=== PATIENT | female | born 2000 | race African-American/Black ===

== ENCOUNTER 2024-06-01 16:11 | Emergency (ER) | payer SELFPAY ==
--- NOTE | 2024-06-01 16:18 | PC.NURSE ---
DR VICENTE AT BEDSIDE
--- NOTE | 2024-06-01 16:21 | ED_ITS ---
Discharge Plan Disposition Chief Complaint: OB/Uterine Contractions Prescriptions Prescriptions: New pyridoxine (vitamin B6) 25 mg tablet 25 mg PO TID Qty: 90 0RF doxylamine succinate 25 mg tablet 25 mg PO HS PRN (Reason: vomiting ) Qty: 30 0RF Activity Restrictions/Add. Instructions Additional Instructions/Restrictions: At this time it was felt you are safe to be discharged home. If new or worsening symptoms please do not hesitate to return the emergency department. Please take your medications as prescribed and follow-up with an OB to establish care within the next week if you are able. Your blood count was a little low today, please have your family doctor recheck it within the next week or so. Your potassium was a little low today which is from your vomiting and I gave some of that back to you by mouth. Please have them recheck that at your OB appointment. Clinical Impressions Clinical Impression: Intrauterine , Anemia, Acute hypokalemia, Vomiting affecting Discharge ED Provider: Mina Perez General Adult HPI General Chief complaint: OB/Uterine Contractions Stated complaint: Wants test,home test was + Time Seen by Provider: 06/01/24 16:15 History of Present Illness HPI narrative: Patient is a 23-year-old female with no pertinent past medical history presents emergency department for concerns for . Last menstrual period was 2 months ago, she has had intermittent vomiting that is nonbloody over the last 2 weeks, no abdominal pain, no vaginal discharge or bleeding, she states that her nipples are sore and due to home positive test she presents here for confirmation. Other acute complaints at this time. Related Data Previous Rx's Medication Instructions Recorded doxylamine succinate 25 mg tablet 25 mg PO HS PRN vomiting 06/01/24 #30 tabs pyridoxine (vitamin B6) 25 mg 25 mg PO TID vomiting 06/01/24 tablet #90 tabs Allergies Allergy/AdvReac Type Severity Reaction Status Date / Time No Known Allergies Allergy Verified 06/01/24 16:29 [facility] Disclaimer: The information contained in this section may have been updated after the patient was seen, as this information can be updated by other users. Social History Smoking Status: Never smoker alcohol intake: never current occupational status: other Travel in the last 8 weeks: None ROS Obtained: Yes Systems reviewed as appropriate & no additional complaints except as documented Physical Exam General General appearance: alert and in no apparent distress Head Head exam: atraumatic and normocephalic Eye Eye exam: Present PERRL ENT ENT exam: Present mucous membranes moist Neck Neck exam: Present normal inspection Chest Chest inspection: Present normal inspection and symmetric chest wall rise Respiratory Respiratory exam: Present normal lung sounds bilaterally; Absent respiratory distress Cardiovascular Cardiovascular exam: Present regular rate and normal rhythm Abdominal Exam Abdominal exam: Present soft; Absent tenderness, guarding or rebound Extremities Exam Extremities exam: Present normal inspection Neurological Exam Neurological exam: Present alert Psychiatric Psychiatric exam: Present normal affect Skin Skin exam: Present warm and dry Medical Decision Making Stewart Inquiry Pt receiving controlled substance: No Vital Signs: 06/01/24 16:22 Temperature 98.4 F Temperature Source Oral Pulse Rate [Left] 96 H Respiratory Rate 18 Blood Pressure [Right Arm] 129/69 Blood Pressure Mean [Right Arm] 89 Blood Pressure Source [Right Arm] Automatic Cuff Blood Pressure Position [Right Arm] Sitting 02 Sat by Pulse Oximetry 100 Oxygen Delivery Method Room Air Lab Data Lab Results 06/01/24 16:25: WBC 14.5 H, RBC 3.74 L, Hgb 8.9 L, Hct 27.7 L, MCV 74.3 L, MCH 23.7 L, MCHC 31.9, RDW 19.2 H, Plt Count 354, MPV 8.8, Neut % (Auto) 84.1 H, Lymph % (Auto) 12.3, Yancey % (Auto) 3.3, Eos % (Auto) 0.1, Baso % (Auto) 0.1, N eut # (Auto) 12.2 H, Lymph # (Auto) 1.8, Yancey # (Auto) 0.5, Eos # (Auto) 0.0, Baso # (Auto) 0.0, Sodium 135 L, Potassium 3.2 L, Chloride 106, Carbon Dioxide 21 L, Anion Gap 11.2, BUN 5 L, Creatinine 0.40 L, Estimated Creat Clear 188, Estimated GFR 198, Est GFR ( Amer) 239, Glucose 85, Calcium 9.0, Total Bilirubin 0.4, AST 27, ALT 17, Alkaline Phosphatase 69, Total Protein 7.4, Albumin 4.3, Globulin 3.1, Albumin/Globulin Ratio 1.4, Lipase 131, Serum HCG, Qual Positive 06/01/24 16:25 06/01/24 16:25 Orders (Tests/Meds): ORDERS Category Date Time Status POCUS Point of Care (ER Only) Stat Exams 06/01/24 16:21 Completed CBC w/Auto Diff [Complete Blood Count Auto Diff] Stat Lab 06/01/24 16:25 Completed CMP [Comprehensive Metabolic Panel] Stat Lab 06/01/24 16:25 Completed HCG Qualitative, Serum Stat Lab 06/01/24 16:25 Completed Lipase Stat Lab 06/01/24 16:25 Completed UA [Urinalysis and Microscopic] Stat Lab 06/01/24 16:31 Received Medical Decision Narrative: In summary patient is a 23-year-old female past medical history described above who presents emergency department for evaluation of positive test. Patient is hemodynamically stable nontoxic upon arrival, afebrile. Patient has no abdominal pain or tenderness, no vaginal bleeding. Simply a positive test and vomiting. History and physical is consistent with . Workup will be conducted with hematologic labs, hCG. [id number] ultrasound will be performed. Initial workup reviewed by me, leukocytosis, anemia with hemoglobin of 8.9 however patient has no active signs of bleeding that would require further workup at this time. Potassium is a little low consistent with her vomiting which will be repleted orally. Lipase negative. Patient with p.o. trial at bedtime was successful. Given this patient is appropriate for discharge at this time and will follow-up with OB in [place] to establish care within 1 week. She will be discharged with a course of vitamin B6 and doxylamine and was given return precautions. Indication: Positive home test Identified structures: Uterus Findings: Uterus: Definitive intrauterine , gestational sac, yolk sac, pole present Images were saved to permanent archive The study was technically adequate CPT Transabdominal: 31438-90 This study was performed by me, and I personally interpreted all images/videos. Based on my clinical judgement, these images were adequate and did not necessitate further imaging. Critical Care Critical Care Time Critical Care Time: No
[2024-06-01 16:22] VITALS: BP 129/69; PULSE 96; RESP 18; TEMP 36.9; O2SAT 100; BMI 18.2
[2024-06-01 16:35] LABS: Basophils % 0.1 % (0.1-2.0); Eosinophils % 0.1 % (0.1-12.0); Hematocrit 27.7 % (37.0-47.0); Hemoglobin 8.9 g/dL (12.2-16.2); Lymphocytes # 1.8 K/mm3 (0.7-4.5); Lymphocytes % 12.3 % (10-50); Mean Corpuscular HGB Conc 31.9 g/dL (31.8-35.4); Mean Corpuscular Hemoglobin 23.7 pg (27.0-31.2); Mean Corpuscular Volume 74.3 fl (81-99); Mean Platelet Volume 8.8 fl (7.4-10.4); Monocytes # 0.5 K/mm3 (0.1-1.0); Monocytes % 3.3 % (1.7-9.3); Neutrophils # 12.2 K/mm3 (1.8-7.8); Neutrophils % 84.1 % (37.0-80.0); Platelet Count 354 K/mm3 (142-424); Red Blood Count 3.74 M/mm3 (4.20-5.40); Red Cell Distribution Width 19.2 % (11.5-17.5); White Blood Count 14.5 K/mm3 (4.8-10.8)
[2024-06-01 16:44] LABS: Microscopic, Urine URINE MICROSCOPIC (MICROSCOPIC)
[2024-06-01 16:52] LABS: Alanine Aminotransferase 17 U/L (12-78); Albumin Level 4.3 g/dl (3.5-5.0); Albumin/Globulin Ratio 1.4 (1.1-1.8); Alkaline Phosphatase 69 U/L (38-126); Anion Gap 11.2 mEq/L (5-15); Aspartate Amino Transferase 27 U/L (14-36); Bilirubin,Total 0.4 mg/dl (0.2-1.3); Blood Urea Nitrogen 5 mg/dl (7-17); Carbon Dioxide 21 mmol/L (22.0-30.0); Chloride 106 mmol/L (98-107); Creatinine Clearance Estimated 188 mL/min (50-200); Estimated Glomerular Filt Rate 198 ml/min (>60); GFR (African American) 239 ML/MIN (>60); Globulin 3.1 g/dL (1.3-3.2); Glucose 85 mg/dl (74-100); HCG Qualitative, Serum Positive (Negative); Lipase 131 U/L (23-300); Potassium 3.2 mmoL/L (3.5-5.1); Sodium 135 mmol/L (136-145); Total Protein,Serum 7.4 g/dl (6.3-8.2)
[2024-06-01 16:58] LABS: Appearance,Urine CLEAR (Clear); Bilirubin,Urine Negative (Negative); Blood, Urine Negative (Negative); Color,Urine YELLOW (Yellow); Glucose,Urine (UA) Negative (Negative); Ketones,Urine Negative (Negative); Leukocyte Esterase,Urine 3+ (Negative); Nitrate,Urine Negative (Negative); Protein,Urine Negative (Negative); Specific Gravity, Urine 1.015 (1.005-1.030); Urobilinogen,Urine 0.2 EU/dl (0.2)
[2024-06-01 17:32] LABS: Bacteria,Urine 2+ /lpf; RBC,Urine Occasional #/hpf (0-3); Squamous Epithelial Cell,Urine 20-50 #/hpf (0-5)
[2024-06-01] MEDS: POTASSIUM CHLORIDE 20MEQ TAB 40 MEQ PO (17:35)
[2024-06-01 17:39] VITALS: BP 122/70; PULSE 88; RESP 18; TEMP 36.7; O2SAT 100
--- NOTE | 2024-06-01 17:53 | PC.NURSE ---
LEFT MESSAGE FOR PT TO OR DIRECTOR RX FOR ABX
== END 2024-06-01 17:39 | disposition home or self-care (01) ==
PROVIDERS: Emergency Provider Emergency Medicine
DX: O21.9 Vomiting of pregnancy, unspecified (principal); E87.6 Hypokalemia; O23.41 Unspecified infection of urinary tract in pregnancy, first trimester; B96.89 Other specified bacterial agents as the cause of diseases classified elsewhere; R82.71 Bacteriuria; D64.9 Anemia, unspecified; Z3A.01 Less than 8 weeks gestation of pregnancy
CPT/HCPCS: 80053; 81001; 83690; 84703; 85025; 87086; 99284